=== PATIENT | female | born 1935 | race Caucasian/White ===

== ENCOUNTER 2019-04-17 15:26 | Emergency (ER) | payer MEDICARE, BC ==
[2019-04-17 15:53] LABS: BASOPHILS % (AUTO) 1 % (0-3); EOSINOPHILS % (AUTO) 1 % (0-9); HEMATOCRIT 46 % (35-47); HEMOGLOBIN 15.2 gm/dl (12.0-15.5); LYMPHOCYTES % (AUTO) 12.7 % (10-50); MEAN CORPUSCULAR HEMOGLOBIN 29.1 pg (27.0-32.0); MEAN CORPUSCULAR HGB CONC 33.5 gm/dl (32.0-36.0); MEAN CORPUSCULAR VOLUME 87 fL (81-99); MONOCYTES % (AUTO) 7.5 % (0-12); NEUTROPHILS % (AUTO) 77.7 % (37-80)
[2019-04-17 16:00] LABS: BILIRUBIN,TOTAL 0.6 mg/dl (0.2-1.0); CARBON DIOXIDE 28.4 mEq/L (21-32); CREATININE 1.13 mg/dl (0.60-1.00); TOTAL PROTEIN 7.8 gm/dl (6.4-8.2)
[2019-04-17 16:04] LABS: POTASSIUM 2.7 mMol/L (3.5-5.1)
[2019-04-17] MEDS ORDERED: POTASSIUM CHLORIDE 2 MEQ/ML SOL IV ONE (16:06)
[2019-04-17] MEDS ORDERED: POTASSIUM CHLORIDE 10 MEQ TER ONE (16:07)
[2019-04-17] MEDS ORDERED: POTASSIUM CHLORIDE 10 MEQ TER PO ONE (16:10)
[2019-04-17 16:13] VITALS: TEMP 97.6
[2019-04-17] MEDS ORDERED: PREDNISONE 20 MG TAB PO ONE (16:32)
[2019-04-17] MEDS ORDERED: DOXYCYCLINE 100 MG TAB PO SCH (16:33)
[2019-04-17] MEDS ORDERED: PREDNISONE 20 MG TAB ONE (17:02)
[2019-04-17] MEDS ORDERED: DOXYCYCLINE 100 MG TAB ONE (17:04)
[2019-04-17 17:08] LABS: ABG PH 7.51 (7.35-7.45)
[2019-04-17] MEDS ORDERED: HEPARIN SODIUM 5000 U/ML SOL IV ONE ×2 (17:57→18:22)
[2019-04-17] MEDS ORDERED: SODIUM CHLORIDE 0.9% FLUSH 10 ML SOL IV SCH (18:00)
[2019-04-17] MEDS ORDERED: HEPARIN PREMIX 25,000 U/250 ML SOL IV SCH (18:00)
[2019-04-17] MEDS ORDERED: HEPARIN SODIUM 5000 U/ML SOL ONE ×2 (18:16→18:28)
[2019-04-17 18:35] LABS: INR 1.25 (0.86-1.12)
[2019-04-17 19:10] VITALS: BP 120/92; PULSE 102; RESP 34; O2SAT 93
== END 2019-04-17 20:10 | disposition short-term general hospital (02) | DRG 175 ==
LOC: ED 15:26
DX: I26.02 Saddle embolus of pulmonary artery with acute cor pulmonale (principal); J96.21 Acute and chronic respiratory failure with hypoxia; J44.1 Chronic obstructive pulmonary disease with (acute) exacerbation; R06.02 Shortness of breath
CPT/HCPCS: 36415; 36600; 71046; 71275; 80053; 82803; 83880; 84484; 85025; 85379; 85610; 85730; 93005; 96365; 96374; 99291; J1644; Q9967; A9270-GY